=== PATIENT | female | born 1975 | race Asian ===

== ENCOUNTER 2018-12-16 13:36 | Emergency (ER) | payer MEDICAID, OTHER ==
[~2018-12-16] VITALS: Ht 149.9 cm; Wt 54.5 kg
[~2018-12-16 13:36] MED LIST: CLON2 PO; HYDR1CAP2 PO
[2018-12-16] MEDS ORDERED: CEPHALEXIN MONOHYDRATE 500 MG CAPSULE PO ONE (17:15)
[2018-12-16] MEDS ORDERED: DOXYCYCLINE HYCLATE 100 MG CAPSULE PO ONE (17:15)
[2018-12-16 17:26] VITALS: BP 129/78
== END 2018-12-16 17:27 | disposition home or self-care (01) ==
LOC: EMS 13:37
DX: S90.561A Insect bite (nonvenomous), right ankle, initial encounter (principal); L03.115 Cellulitis of right lower limb; Z88.8 Allergy status to other drugs, medicaments and biological substances; W57.XXXA Bitten or stung by nonvenomous insect and other nonvenomous arthropods, initial encounter; Y93.89 Activity, other specified; Y92.89 Other specified places as the place of occurrence of the external cause; Y99.8 Other external cause status

== ENCOUNTER 2019-01-08 05:51 | Emergency (ER) | payer OTHER ==
[~2019-01-08] VITALS: Ht 149.9 cm; Wt 54.5 kg
[2019-01-08 06:09] VITALS: BP 137/89
== END 2019-01-08 06:53 | disposition left against medical advice (07) ==
LOC: EMS 05:53
DX: K08.89 Other specified disorders of teeth and supporting structures (principal); G89.29 Other chronic pain; Z53.21 Procedure and treatment not carried out due to patient leaving prior to being seen by health care provider

== ENCOUNTER 2019-01-17 15:12 | Emergency (ER) | payer OTHER ==
[~2019-01-17] VITALS: Ht 149.9 cm; Wt 59.1 kg
[2019-01-17] MEDS ORDERED: KETOROLAC TROMETHAMINE 10 MG TABLET PO ONE (15:30)
[2019-01-17 17:03] VITALS: BP 136/95
== END 2019-01-17 17:12 | disposition home or self-care (01) ==
LOC: EMS 15:14
DX: S82.142A Displaced bicondylar fracture of left tibia, initial encounter for closed fracture (principal); S83.512A Sprain of anterior cruciate ligament of left knee, initial encounter; G89.29 Other chronic pain; Z88.8 Allergy status to other drugs, medicaments and biological substances; Z91.018 Allergy to other foods; X58.XXXA Exposure to other specified factors, initial encounter; Y93.89 Activity, other specified; Y92.89 Other specified places as the place of occurrence of the external cause; Y99.8 Other external cause status
CPT/HCPCS: 29505